=== PATIENT | male | born 1965 | race Caucasian/White ===

== ENCOUNTER 2022-05-11 18:47 | Emergency (ER) | payer OTHER ==
[2022-05-11 19:03] VITALS: BP 123/90; PULSE 86
[2022-05-11] MEDS ORDERED: Silver Sulfadiazine 1% Crm 50 GM Tube TOP ONE (19:19)
[2022-05-11] MEDS ORDERED: Cephalexin 500 MG Cap PO ONE (19:42)
== END 2022-05-11 20:41 | disposition home or self-care (01) ==
LOC: DL.ED 18:47
DX: T24.521A Corrosion of first degree of right knee, initial encounter (principal); T24.522A Corrosion of first degree of left knee, initial encounter
CPT/HCPCS: 16020; 87070; 87077; 87186; 99283; A9270-GY